=== PATIENT | female | born 1985 | race Caucasian/White ===

== ENCOUNTER 2018-10-30 23:27 | Emergency (ER) | payer MEDICAID ==
[2018-10-31] MEDS ORDERED: Venlafaxine 37.5 MG Cap.ER PO ONE (00:20)
[2018-10-31] MEDS ORDERED: Venlafaxine 75 MG Cap.ER ONE (00:39)
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
== END 2018-10-31 02:26 | disposition home or self-care (01) ==
LOC: JP.ED 23:27
DX: F10.129 Alcohol abuse with intoxication, unspecified (principal); F41.9 Anxiety disorder, unspecified; Y90.0 Blood alcohol level of less than 20 mg/100 ml; Z88.2 Allergy status to sulfonamides; Z88.6 Allergy status to analgesic agent
CPT/HCPCS: 36415; 80305; 81025; 99283; A9270; G0480